=== PATIENT | female | born 2000 | race Caucasian/White ===

== ENCOUNTER 2019-07-01 14:32 | Emergency (ER) | payer BC, SELFPAY ==
[2019-07-01 14:36] VITALS: BP 108/66; PULSE 105; RESP 16; TEMP 37.3; O2SAT 100
--- NOTE | 2019-07-01 14:57 | ED.GENADULT ---
HPI - General Adult General Chief complaint: Upper Respiratory Infection Stated complaint: body aches/marcial Time Seen by Provider: 07/01/19 14:57 Source: patient and RN notes reviewed Mode of arrival: ambulatory Limitations: no limitations History of Present Illness HPI narrative: 18-year-old female with complaints of nasal congestion, body aches, chills and body shakes, and intermittent headache (none now, not the worst of her life) for 2 days. The aches and headaches started the last 24 hours. Benadryl and Sudafed without relief. No rhinorrhea. Nasal congestion. No exacerbating factors. No high fevers. No nausea, vomiting, and abdominal pain. Denies chest pain, dyspnea, coughing up blood, difficulty swallowing, jaw pain, dental pain, facial pain, foreign body sensation, and rash. Immunizations up-to-date. Remains active. Fernanda denies being , LMP 05/22-08/2019, irregular due to control. Some parts of this dictation were generated by voice recognition software and may contain typographical and/or grammatical inaccuracies. Related Data Home Medications Medication Instructions Recorded Confirmed Control Pills 07/01/19 Allergies Allergy/AdvReac Type Severity Reaction Status Date / Time No Known Allergies Allergy Verified 07/01/19 14:46 Review of Systems Review of Systems: Narrative: CONSTITUTIONAL: Complains of chills. Denies fever, sweats. EYES: Denies visual changes, redness, discharge. ENT: Complains of congestion. Denies rhinorrhea, sore throat, otalgia. CARDIOVASCULAR: Denies chest pain, palpitations, edema. RESPIRATORY: Denies dyspnea, wheezing, cough. GASTROINTESTINAL: Denies abdominal pain, nausea, vomiting, diarrhea. GENITOURINARY: Denies dysuria, hematuria, abnormal discharge. SKIN: Denies rash or itching. MUSCULOSKELETAL: Denies acute back pain, joint pain. Complains of myalgia. NEUROLOGIC: Denies numbness or focal weakness. Complains of intermittent MARCIAL. PSYCHIATRIC: Denies anxiety or depression. All systems reviewed & are unremarkable except as noted in HPI and below. [facility] Past Medical History Medical History (Updated 07/02/19 @ 00:00 by Tia De La Cruz) Eczema Surgical History Surgical History (Updated 07/01/19 @ 15:21 by Tatonya M. Mcdaniels, [employer]) No significant past surgical history Family History Family History (Updated 07/01/19 @ 15:22 by HOSEA Cedillo) Father Diabetes mellitus Sibling Tachycardia Social History Social History (Updated 07/01/19 @ 15:23 by HOSEA Cedillo) Smoking status: Never smoker Alcohol intake: never Substance use: never Living arrangements: with family Occupation/Education: student Gender identity (if verbalized by the patient): Female Comments At time of signature, agree with nurse past medical, surgical, social, and family history. There is no relevant family history pertinent to the presenting complaint. Exam Narrative: Exam Narrative: GENERAL: This is a well-nourished, well-developed patient, in no apparent distress. Speaks in full sentences and ambulates with steady gait without dyspnea. HEAD: normocephalic, atraumatic. EYES: PERRL. Sclera clear/white. Vision is grossly intact. EARS: External ears normal, auditory canals clear and without drainage, LT TM normal without perforation, canal with small amount of cerumen. Unable to visualize RT TM due to large amount of cerumen, Fernanda refused cerumen removal at this time. Hearing grossly intact. NOSE: External nose normal with no obvious nasal discharge, nares with mild-moderate redness and enlarged turbinates, LT worse, clear rhinorrhea. THROAT: Mucous membranes moist, posterior pharynx with PND, mild erythema, no exudate, and tonsils normal. No drainage, no concern for Peritonsillar abscess. No drooling, trismus, or neck swelling. NECK: Neck supple, non-tender without lymphadenopathy, masses or thyromegaly. CARDIOVASCULAR: Regular rate
== END 2019-07-01 15:11 | disposition home or self-care (01) ==
PROVIDERS: Emergency Provider Nurse Practitioner Family
DX: J00 Acute nasopharyngitis [common cold] (principal); J01.90 Acute sinusitis, unspecified
CPT/HCPCS: 87804; 99213; G0463